=== PATIENT | male | born 1940 | race Caucasian/White ===

== ENCOUNTER 2023-10-27 15:17 | Inpatient (IN) | payer MEDICARE, OTHER ==
[2023-10-27 17:24] LABS: #Basophils Less than 0.03 10x3/uL (0.0-0.2); %Basophils 0.2 % (0.0-1.0); %Eosinophils 0.6 % (0.0-10.0); %Lymphocytes 6.6 % (21.0-51.0); %Monocytes 6.1 % (0.0-10.0); %Neutrophils 86.2 % (42.0-75.0); Hematocrit 18.2 % (42.0-52.0); Hemoglobin 5.5 g/dL (14.0-18.0); Mean Corpuscular HGB CONC 30.2 g/dL (32.0-36.0); Mean Corpuscular Hemoglobin 28.4 pg (27.0-31.0); Mean Corpuscular Volume 93.8 fL (78.0-98.0); Mean Platelet Volume 9.3 fL (7.4-10.4); Platelet Count 453 10x3/uL (130-400); RBC Distribution Width 14.1 % (11.5-14.5); Red Blood Cell (RBC) Count 1.94 mill/uL (4.70-6.10)
[2023-10-27 17:34] LABS: Anion Gap 14 mmol/L (10-20); Globulin 2.5 g/dL (2.4-3.5)
[2023-10-27 17:36] LABS: INR-International Normal Ratio 1.1; PTT 30.3 sec (22.9-36.1); Prothrombin Time 14.1 sec (12.0-14.7)
[2023-10-27 17:38] LABS: ALT (SGPT) 30 U/L (8-55); AST (SGOT) 26 U/L (5-34); Albumin 3.1 g/dL (3.4-4.8); Alkaline Phosphatase 80 U/L (40-110); BUN (Urea Nitrogen) 39 mg/dL (8.4-25.7); Bilirubin, Total 0.2 mg/dL (0.2-1.2); Calc. Creatinine Clearance 0 mL/min (70-130); Calcium 9.1 mg/dL (7.8-10.44); Carbon Dioxide 23 mmol/L (23-31); Chloride 102 mmol/L (98-107); Estimated GFR 38; Glucose 138 mg/dL (83-110); Potassium 5.2 mmol/L (3.5-5.1); Protein, Total 5.6 g/dL (5.8-8.1); Sodium 134 mmol/L (136-145)
[2023-10-27 18:35] LABS: Bilirubin Small (Negative); Blood, Urine Large (Negative); Clarity Cloudy (Clear); Glucose, Urine (Dipstick) Negative (Negative); Leukocyte Moderate (Negative); Nitrite Positive (Negative); Specific Gravity, Urine 1.015 (1.005-1.030); pH, Urine 8.5 (5.0-9.0)
[2023-10-27 18:36] LABS: Ketone, Urine Unable to Interpret mg/dL (Negative); Protein, Urine (Dipstick) Unable to Interpret mg/dL (Neg-Trace)
[2023-10-27 18:39] LABS: Bacteria/HPF None Seen HPF (None Seen); CAUTI Indications for Culture Dysuria,urgency,freq; RBC/HPF Greater than 50 HPF (0-3); Squamous Epithelial 0-3 HPF (0-3)
[2023-10-27 18:40] LABS: Urine Culture Reflex No No
[2023-10-27 21:17] VITALS: BMI 19.1
[2023-10-27 21:53] LABS: Anion Gap 13 mmol/L (10-20)
[2023-10-27 21:55] LABS: BUN (Urea Nitrogen) 37 mg/dL (8.4-25.7); Calc. Creatinine Clearance 24 mL/min (70-130); Calcium 8.5 mg/dL (7.8-10.44); Carbon Dioxide 21 mmol/L (23-31); Chloride 105 mmol/L (98-107); Estimated GFR 34; Glucose 160 mg/dL (83-110); Potassium 4.4 mmol/L (3.5-5.1); Sodium 135 mmol/L (136-145)
[2023-10-28 03:59] LABS: Hematocrit 17.6 % (42.0-52.0); Hemoglobin 5.5 g/dL (14.0-18.0)
[2023-10-28 04:00] LABS: #Basophils Less than 0.03 10x3/uL (0.0-0.2); %Basophils 0.1 % (0.0-1.0); %Eosinophils 3.2 % (0.0-10.0); %Lymphocytes 15.9 % (21.0-51.0); %Neutrophils 70.5 % (42.0-75.0); Hematocrit 17.9 % (42.0-52.0); Hemoglobin 5.6 g/dL (14.0-18.0); Mean Corpuscular HGB CONC 31.3 g/dL (32.0-36.0); Mean Corpuscular Volume 92.7 fL (78.0-98.0); Mean Platelet Volume 9.2 fL (7.4-10.4); Platelet Count 367 10x3/uL (130-400); Red Blood Cell (RBC) Count 1.93 mill/uL (4.70-6.10)
[2023-10-28 05:45] LABS: Anion Gap 12 mmol/L (10-20)
[2023-10-28 05:47] LABS: BUN (Urea Nitrogen) 37 mg/dL (8.4-25.7); Calc. Creatinine Clearance 24 mL/min (70-130); Calcium 8.1 mg/dL (7.8-10.44); Carbon Dioxide 21 mmol/L (23-31); Chloride 107 mmol/L (98-107); Estimated GFR 33; Glucose 149 mg/dL (83-110); Potassium 4.2 mmol/L (3.5-5.1); Sodium 136 mmol/L (136-145)
[2023-10-28 12:14] LABS: Hematocrit 20.8 % (42.0-52.0); Hemoglobin 6.8 g/dL (14.0-18.0)
[2023-10-28 16:14] LABS: #Basophils 0.03 10x3/uL (0.0-0.2); %Basophils 0.3 % (0.0-1.0); %Lymphocytes 15.5 % (21.0-51.0); %Monocytes 8.4 % (0.0-10.0); Hematocrit 32.4 % (42.0-52.0); Hemoglobin 10.5 g/dL (14.0-18.0); Mean Corpuscular HGB CONC 32.4 g/dL (32.0-36.0); Mean Corpuscular Hemoglobin 29.5 pg (27.0-31.0); Platelet Count 385 10x3/uL (130-400); RBC Distribution Width 15.1 % (11.5-14.5); Red Blood Cell (RBC) Count 3.56 mill/uL (4.70-6.10)
[2023-10-28 16:27] LABS: Anion Gap 13 mmol/L (10-20)
[2023-10-28 16:28] LABS: BUN (Urea Nitrogen) 26 mg/dL (8.4-25.7); Calc. Creatinine Clearance 31 mL/min (70-130); Calcium 8.6 mg/dL (7.8-10.44); Carbon Dioxide 18 mmol/L (23-31); Chloride 108 mmol/L (98-107); Estimated GFR 46; Glucose 143 mg/dL (83-110); Potassium 4.1 mmol/L (3.5-5.1); Sodium 135 mmol/L (136-145)
[2023-10-29 03:46] LABS: #Basophils 0.03 10x3/uL (0.0-0.2); %Basophils 0.4 % (0.0-1.0); %Eosinophils 4.6 % (0.0-10.0); %Lymphocytes 11.4 % (21.0-51.0); %Monocytes 8.4 % (0.0-10.0); %Neutrophils 74.8 % (42.0-75.0); Hematocrit 30.1 % (42.0-52.0); Hemoglobin 9.9 g/dL (14.0-18.0); Mean Corpuscular HGB CONC 32.9 g/dL (32.0-36.0); Mean Corpuscular Hemoglobin 28.5 pg (27.0-31.0); Mean Corpuscular Volume 86.7 fL (78.0-98.0); Mean Platelet Volume 9.2 fL (7.4-10.4); Platelet Count 387 10x3/uL (130-400); RBC Distribution Width 15.6 % (11.5-14.5); Red Blood Cell (RBC) Count 3.47 mill/uL (4.70-6.10)
[2023-10-29 04:19] LABS: Anion Gap 11 mmol/L (10-20); BUN (Urea Nitrogen) 20 mg/dL (8.4-25.7); Calc. Creatinine Clearance 36 mL/min (70-130); Calcium 8.4 mg/dL (7.8-10.44); Carbon Dioxide 21 mmol/L (23-31); Chloride 108 mmol/L (98-107); Estimated GFR 55; Glucose 93 mg/dL (83-110); Potassium 3.9 mmol/L (3.5-5.1); Sodium 136 mmol/L (136-145)
[2023-10-30 08:25] LABS: Hematocrit 31.6 % (42.0-52.0); Hemoglobin 10.5 g/dL (14.0-18.0); Mean Corpuscular HGB CONC 33.2 g/dL (32.0-36.0); Mean Corpuscular Hemoglobin 29.4 pg (27.0-31.0); Mean Corpuscular Volume 88.5 fL (78.0-98.0); Mean Platelet Volume 9.3 fL (7.4-10.4); Platelet Count 389 10x3/uL (130-400); RBC Distribution Width 15.5 % (11.5-14.5); Red Blood Cell (RBC) Count 3.57 mill/uL (4.70-6.10)
[2023-10-30 08:45] LABS: Anion Gap 12 mmol/L (10-20); BUN (Urea Nitrogen) 16 mg/dL (8.4-25.7); Calc. Creatinine Clearance 44 mL/min (70-130); Calcium 8.6 mg/dL (7.8-10.44); Carbon Dioxide 20 mmol/L (23-31); Chloride 110 mmol/L (98-107); Estimated GFR 70; Glucose 107 mg/dL (83-110); Sodium 138 mmol/L (136-145)
[2023-10-31 10:09] LABS: #Basophils 0.03 10x3/uL (0.0-0.2); %Basophils 0.3 % (0.0-1.0); %Eosinophils 4.1 % (0.0-10.0); %Monocytes 5.1 % (0.0-10.0); %Neutrophils 77.9 % (42.0-75.0); Hematocrit 36.6 % (42.0-52.0); Hemoglobin 11.8 g/dL (14.0-18.0); Mean Corpuscular HGB CONC 32.2 g/dL (32.0-36.0); Mean Corpuscular Hemoglobin 29.9 pg (27.0-31.0); Mean Corpuscular Volume 92.7 fL (78.0-98.0); Mean Platelet Volume 9.2 fL (7.4-10.4); Platelet Count 486 10x3/uL (130-400); RBC Distribution Width 15.3 % (11.5-14.5); Red Blood Cell (RBC) Count 3.95 mill/uL (4.70-6.10)
[2023-10-31 10:33] LABS: Anion Gap 17 mmol/L (10-20); BUN (Urea Nitrogen) 14 mg/dL (8.4-25.7); Calc. Creatinine Clearance 40 mL/min (70-130); Calcium 9.5 mg/dL (7.8-10.44); Carbon Dioxide 22 mmol/L (23-31); Chloride 106 mmol/L (98-107); Estimated GFR 63; Glucose 203 mg/dL (83-110); Potassium 4.1 mmol/L (3.5-5.1); Sodium 141 mmol/L (136-145)
[2023-10-31 12:44] VITALS: BMI 19.2
[2023-11-04 10:00] LABS: #Basophils 0.05 10x3/uL (0.0-0.2); %Basophils 0.7 % (0.0-1.0); %Eosinophils 5.5 % (0.0-10.0); %Lymphocytes 13.5 % (21.0-51.0); %Monocytes 6.3 % (0.0-10.0); %Neutrophils 73.7 % (42.0-75.0); Hematocrit 36.6 % (42.0-52.0); Hemoglobin 11.5 g/dL (14.0-18.0); Mean Corpuscular HGB CONC 31.4 g/dL (32.0-36.0); Mean Corpuscular Hemoglobin 29.6 pg (27.0-31.0); Mean Corpuscular Volume 94.3 fL (78.0-98.0); Platelet Count 444 10x3/uL (130-400); RBC Distribution Width 15.8 % (11.5-14.5); Red Blood Cell (RBC) Count 3.88 mill/uL (4.70-6.10)
[2023-11-04 10:10] LABS: Anion Gap 17 mmol/L (10-20); BUN (Urea Nitrogen) 24 mg/dL (8.4-25.7); Calc. Creatinine Clearance 43 mL/min (70-130); Calcium 9.4 mg/dL (7.8-10.44); Carbon Dioxide 23 mmol/L (23-31); Chloride 104 mmol/L (98-107); Estimated GFR 71; Glucose 149 mg/dL (83-110); Potassium 3.9 mmol/L (3.5-5.1); Sodium 140 mmol/L (136-145)
[2023-11-05 17:17] VITALS: BP 137/69; TEMP 97.5
== END 2023-11-05 16:30 | disposition home health service (06) | DRG 669 ==
LOC: ERS 15:17 → OBSVTOIN 17:50 → 2NO 17:50 → CCU 10-28 14:41 → IMCU/EMU 10-28 16:45 → MSONC 10-31 18:09
PROVIDERS: ADMIT Student in an Organized Health Care Education/Training Program; ATTEND Family Medicine
PROC: 30243K1 Transfusion of Nonautologous Frozen Plasma into Central Vein, Percutaneous Approach (ICD-10-PCS; 2023-10-27)
PROC: 30243N1 Transfusion of Nonautologous Red Blood Cells into Central Vein, Percutaneous Approach (ICD-10-PCS; 2023-10-27)
PROC: 30243R1 Transfusion of Nonautologous Platelets into Central Vein, Percutaneous Approach (ICD-10-PCS; 2023-10-27)
PROC: 0T5B8ZZ Destruction of Bladder, Via Natural or Artificial Opening Endoscopic (ICD-10-PCS; principal; 2023-10-28)
PROC: 0TBB8ZZ Excision of Bladder, Via Natural or Artificial Opening Endoscopic (ICD-10-PCS; 2023-10-28)
PROC: 0TCB8ZZ Extirpation of Matter from Bladder, Via Natural or Artificial Opening Endoscopic (ICD-10-PCS; 2023-10-28)
PROC: 0T9430Z Drainage of Left Kidney Pelvis with Drainage Device, Percutaneous Approach (ICD-10-PCS; 2023-10-29)
DX: N32.89 Other specified disorders of bladder (principal); D62 Acute posthemorrhagic anemia; N17.9 Acute kidney failure, unspecified; N13.30 Unspecified hydronephrosis; R31.9 Hematuria, unspecified; E87.5 Hyperkalemia; Z86.73 Personal history of transient ischemic attack (TIA), and cerebral infarction without residual deficits; Z88.2 Allergy status to sulfonamides; Z79.899 Other long term (current) drug therapy
CPT/HCPCS: 36415; 36430; 50432; 71250; 74176; 74178; 74420; 76770; 76942; 78306; 80048; 80053; 81001; 83880; 84153; 85025; 85027; 85610; 85730; 86850; 86900; 86901; 87086; 87205; 88307; 93306; 99152; 99153; 99284; A4333; A9503; C1729; C1769; J0696; J2250; J3010; J3490; J7030; J7050; P9016; P9035; Q9967

== ENCOUNTER 2023-11-21 08:45 | Outpatient (CLI) | payer MEDICARE | END 2023-11-21 08:46 | disposition home or self-care (01) | LOC: PET 08:45 | PROVIDERS: ATTEND Internal Medicine Hematology & Oncology | DX: C67.0 Malignant neoplasm of trigone of bladder (principal); R59.0 Localized enlarged lymph nodes; Z93.6 Other artificial openings of urinary tract status | CPT/HCPCS: 78815; A9552 ==

== ENCOUNTER → 2024-01-02 | Day surgery (SDC) | payer MEDICARE ==
[~2024-01-02] MED LIST: Iopamidol 30 ML ONE; LevoFLOXacin 250 mg/D5W 250 MG in Premix 1 BAG IVPB SCH; Sodium Bicarbonate 2.5 MEQ/5 ML SDV ONE; Sodium Chloride 0.9% 500 ML ONE
== END ==
LOC: SPEC 06:54
PROVIDERS: ATTEND Urology
PROC: 0T25X0Z Change Drainage Device in Kidney, External Approach (ICD-10-PCS; principal; 2024-01-02)
DX: Z43.6 Encounter for attention to other artificial openings of urinary tract (principal); C67.2 Malignant neoplasm of lateral wall of bladder; C61 Malignant neoplasm of prostate; N35.812 Other bulbous urethral stricture, male; N28.1 Cyst of kidney, acquired; N13.30 Unspecified hydronephrosis; Z88.8 Allergy status to other drugs, medicaments and biological substances; Z88.2 Allergy status to sulfonamides
CPT/HCPCS: 50435; 75984; C1729; C1769; J1956; J7030; Q9967

== ENCOUNTER 2024-05-14 09:30 | Outpatient (CLI) | payer MEDICARE | END 2024-05-14 09:31 | disposition home or self-care (01) | LOC: PET 09:30 | PROVIDERS: ATTEND Internal Medicine Hematology & Oncology | DX: C67.0 Malignant neoplasm of trigone of bladder (principal); Z90.6 Acquired absence of other parts of urinary tract | CPT/HCPCS: 78815; A9552 ==

== ENCOUNTER 2024-07-13 12:33 | Outpatient (CLI) | payer MEDICARE, BC | END 2024-07-13 12:34 | disposition home or self-care (01) | LOC: BICCT 12:33 | PROVIDERS: ATTEND Urology | DX: C67.2 Malignant neoplasm of lateral wall of bladder (principal); C61 Malignant neoplasm of prostate; N13.30 Unspecified hydronephrosis; Q62.5 Duplication of ureter; Z90.6 Acquired absence of other parts of urinary tract; Z98.890 Other specified postprocedural states; N28.1 Cyst of kidney, acquired; E78.2 Mixed hyperlipidemia | CPT/HCPCS: 36415; 74178; 80053; 80061; 82565; 84153; 84443; 85025 ==

== ENCOUNTER 2024-07-27 13:22 | Outpatient (CLI) | payer MEDICARE, BC ==
[2024-07-27 15:24] LABS: Hematocrit 33.5 % (42.0-52.0); Mean Corpuscular HGB CONC 32.8 g/dL (32.0-36.0); Mean Corpuscular Hemoglobin 32.9 pg (27.0-31.0); Mean Corpuscular Volume 100.3 fL (78.0-98.0); Mean Platelet Volume 9.8 fL (7.4-10.4); Platelet Count 215 10x3/uL (130-400); RBC Distribution Width 13.1 % (11.5-14.5); Red Blood Cell (RBC) Count 3.34 mill/uL (4.70-6.10)
[2024-07-27 15:34] LABS: INR-International Normal Ratio 1.1; PTT 36.1 sec (22.9-36.1); Prothrombin Time 14.3 sec (12.0-14.7)
[2024-07-27 15:43] LABS: Anion Gap 10 mmol/L (10-20); BUN (Urea Nitrogen) 25 mg/dL (8.4-25.7); Calc. Creatinine Clearance 0 mL/min (70-130); Calcium 9.4 mg/dL (7.8-10.44); Carbon Dioxide 27 mmol/L (23-31); Chloride 107 mmol/L (98-107); Estimated GFR 73; Glucose 170 mg/dL (83-110); Potassium 4.2 mmol/L (3.5-5.1); Sodium 140 mmol/L (136-145)
[2024-07-27 15:47] LABS: Burr Cells SLIGHT = 2-5 cells HPF (0-1); Eosinophils 35 % (0-10); Lymphocytes 12 % (21-51); Monocytes 8 % (0-10); Neutrophil 44 % (42-75); Ovalocytes SLIGHT = 2-5 cells HPF (0-1); Platelet Adequacy Comment Platelets Normal; Smudge Cells 7.1 %
== END 2024-07-27 13:23 | disposition home or self-care (01) ==
LOC: LABBT 13:22
PROVIDERS: ATTEND Urology
DX: Z01.818 Encounter for other preprocedural examination (principal); C67.2 Malignant neoplasm of lateral wall of bladder; C61 Malignant neoplasm of prostate; Q62.5 Duplication of ureter; N28.1 Cyst of kidney, acquired; N13.30 Unspecified hydronephrosis; N35.812 Other bulbous urethral stricture, male; R54 Age-related physical debility; N40.1 Benign prostatic hyperplasia with lower urinary tract symptoms; Z92.3 Personal history of irradiation; Z93.6 Other artificial openings of urinary tract status; Z90.6 Acquired absence of other parts of urinary tract; Z87.448 Personal history of other diseases of urinary system; Z87.898 Personal history of other specified conditions
CPT/HCPCS: 80048; 85025; 85610; 85730; 93005; 93010

== ENCOUNTER 2025-02-23 10:11 | Outpatient (CLI) | payer MEDICARE, BC | END 2025-02-23 10:12 | disposition home or self-care (01) | LOC: SJX 10:11 | PROVIDERS: ATTEND Family Medicine | DX: I63.232 Cerebral infarction due to unspecified occlusion or stenosis of left carotid arteries (principal) | CPT/HCPCS: 70551; 93880 ==